=== PATIENT | male | born 1975 | race Caucasian/White ===

== ENCOUNTER 2023-09-29 18:17 | Emergency (ER) | payer OTHER ==
[2023-09-29 18:37] VITALS: BP 131/76; O2SAT 97
--- NOTE | 2023-09-29 19:27 | ED Physician Documentation ---
History of Present Illness - Stated complaint Stated Complaint: R THUMB LAC - Chief complaint Chief Complaint: Trauma Ext - History obtained from History obtained from: Patient - Additonal information Additional information: Patient was a working on a car engine, and a his hand slipped and he stabbed himself in the right thumb webbing. He states the wound was bleeding quite briskly, "squirting" and he has been holding pressure for about an hour, now developing hand cramps. He states that he had good range of motion, normal sensation. He is unsure of his last tetanus. He is ambidextrous. PD PAST MEDICAL HISTORY - Past Medical History Past Medical History: No - Past Surgical History Past Surgical History: No - Present Medications Home Medications: Ambulatory Orders Medication Instructions Recorded Confirmed cephALEXin [Keflex] 500 mg PO Q6H #20 cap 09/29/23 - Allergies Allergies/Adverse Reactions: Allergies Allergy/AdvReac Type Severity Reaction Status Date / Time No Known Drug Allergies Allergy Verified 09/29/23 18:33 - Social History Does the pt smoke?: Yes Smoking Status: Current every day smoker Does the pt drink ETOH?: Yes ETOH Use: Beer Does the pt have substance abuse?: No PD ED PE NORMAL - Vitals Vital signs reviewed: Yes - General General: Alert and oriented X 3, No acute distress, Well developed/nourished - HEENT HEENT: Atraumatic, Moist mucous membranes - Derm Derm: Normal color, Warm and dry, Other (3 cm laceration in the webbing between the right thumb and index finger. No visible tendon involvement, not currently bleeding.) - Extremities Extremities: No deformity, Normal ROM s pain, Other (Laceration in the webbing between the thumb and index finger of the right hand, normal range of motion of the thumb, normal sensation.) Results - Vitals Vitals: Vital Signs - 24 hr 09/29/23 18:29 Temperature 36.3 C L Heart Rate 86 Respiratory 18 Rate Blood Pressure 131/76 H O2 Saturation 97 Oxygen O2 Source Room air Procedures - Laceration (location) Hand right Length in cm: 3 Wound type: Curved, Contaminated Neurovascular status: Sensory intact, Motor intact, Vascular intact Tendon involvement: Tendon intact Anesthesia: Lidocaine 1% with epi Wound preparation: Hibiclens, Irrigated copiously NS Skin layer closure: Nylon, Size #-0 - enter number (7) Other: Patient tolerated well, Dressing applied, Tetanus booster given PD Medical Decision Making - ED course Complexity details: d/w patient ED course: 47-year-old male presented after an accidental laceration of the webbing between the right thumb and index finger. Lacerations approximately 3 cm. Bleeding base at home however bleeding has stopped upon arrival here. After anesthetizing locally with lidocaine and epinephrine, I irrigated thoroughly with normal saline and Hibiclens, and closed with 7 #4 point 0 nylon sutures. There was excellent wound edge approximation and hemostasis. Patient tolerated well. He was advised that sutures will need to be in place for 10 to 14 days and can be removed by his who is a nurse or he can go to the walk-in clinic. He was advised to keep clean but otherwise dry, and follow-up if any signs of infection. Patient concerned about infection given that his hands are covered in dirt and grease therefore we will give prophylactic Keflex. He was also given updated Tdap today. Departure - Departure Disposition: 01 Home, Self Care Clinical Impression: Laceration of thumb Qualifiers: Encounter type: initial encounter Damage to nail status: without damage Foreign body presence: without foreign body Laterality: right Qualified Code(s): S61.011A - Laceration without foreign body of right thumb without damage to nail, initial encounter Condition: Good Instructions: ED Laceration Hand Prescriptions: cephALEXin [Keflex] 500 mg PO Q6H #20 cap Comments: Keep the hand wound clean with gentle soap and water but otherwise keep dry, do not soak. If there are any signs of infection such as redness, swelling, increased pain or new concerns, return to the ER. The sutures should remain in place for 10 to 14 days and it can be removed by your is a nurse or you can go into the walk-in clinic. Forms: PCP List
[2023-09-29] MEDS: TETANUS/DIPHTHERIA/PERTUSSIS 0.5 ML SYRINGE IM ONE (19:36)
== END 2023-09-29 19:48 | disposition home or self-care (01) ==
LOC: ED 18:17
DX: S61.011A Laceration without foreign body of right thumb without damage to nail, initial encounter (principal); W45.8XXA Other foreign body or object entering through skin, initial encounter; F17.200 Nicotine dependence, unspecified, uncomplicated; Z23 Encounter for immunization
CPT/HCPCS: 12002; 90471; 99283